=== PATIENT | female | born 1970 | race Caucasian/White ===

== ENCOUNTER 2018-05-26 18:03 | Emergency (ER) | payer OTHER ==
[2018-05-26 18:12] VITALS: BMI 30.3
--- NOTE | 2018-05-26 18:38 | PDOC ---
History of Present Illness - General Chief Complaint: Respiratory Stated Complaint: SICK - History of Present Illness Initial Comments: 05/26/18 18:37 47 yo female with PMH NIDDM (not on meds at this time) presents to the ED with 3 days of myalgias (worst in the right neck and shoulder) nausea and vomiting which began today. She states that she was cleaning out a house last weekend which was sonam, she had a few "sneezing attacks" and felt that she might be getting a cold. She states she has had muscle soreness in the past in a similar area as she works as a field merchandiser on the weekends, however this pain is different and is very sensitive to touch. She states she has been feeling feverish with some chills, though she has not checked her temperature. She states she had an episode of vomiting today which was followed by weakness and a period of 3 hours where she sat in her car and felt unable to get out or drive home. She was then able drive herself back where she then called her who told her to come to the ER for further evaluation. Past History - Past Medical History Allergies/Adverse Reactions: Allergies Allergy/AdvReac Type Severity Reaction Status Date / Time peanut Allergy Verified 05/26/18 18:08 Home Medications: Ambulatory Orders Paroxetine HCl [Paxil -] mg PO DAILY 05/26/18 COPD: No Psychiatric Problems: Yes - Surgical History Appendectomy: Yes - Suicide/Smoking/Psychosocial Hx Smoking History: Current every day smoker Information on smoking cessation initiated: No *Physical Exam - Vital Signs Last Vital Signs Temp Pulse Resp BP Pulse Ox 99.4 F 99 H 18 113/63 99 05/26/18 18:09 05/26/18 18:09 05/26/18 18:09 05/26/18 18:09 05/26/18 18:09 - Physical Exam Comments: 05/26/18 18:37 GEN: A&O, pt appears uncomfortable HEENT: dry mucus membranes NECK: supple, significantly tender to palpation in the right neck and scapular/ shoulder region HEART: Tachycardic, no murmurs noted LUNGS: CTA b/l ABDOMEN: Soft, nontender EXTREMITIES: no peripheral edema or calf tenderness Moderate Sedation - Procedure Monitoring Vital Signs: Procedure Monitoring Vital Signs Temperature 99.4 F 05/26/18 18:09 Pulse Rate 99 H 05/26/18 18:09 Respiratory Rate 18 05/26/18 18:09 Blood Pressure 113/63 05/26/18 18:09 O2 Sat by Pulse Oximetry (%) 99 05/26/18 18:09 ED Treatment Course - LABORATORY CBC & Chemistry Diagram: 05/26/18 19:10 05/26/18 20:15 Medical Decision Making - Medical Decision Making 05/26/18 18:40 47 yo female presents with flu like symptoms vs atypical chest and neck pain. Warm but not technically febrile, tachycardic CBC, CMP, Cardiac Profile, EKG, CXR 1L LR fluid bolus, 1000 mg IV Tylenol and reassess 05/26/18 20:37 CBC wnl, CMP/Cardiac profile hemolyzed, repeat pending EKG without any concerning symptoms CXR without any acute pathology 05/26/18 21:05 CMP/Cardiac profile wnl. Pt can likely be d/c with instructions to drink plenty of fluids and return if symptoms worsen or any new concerning symptoms. *DC/Admit/Observation/Transfer Diagnosis at time of Disposition: Viral respiratory illness - Discharge Dispostion Disposition: HOME Condition at time of disposition: Stable Decision to Admit order: No - Referrals - Patient Instructions Additional Instructions: You were seen in the emergency room with flu like symptoms. You were given fluids and tylenol which improved your symptoms. You should make sure to drink plenty of fluids until you are feeling completely better. You can take tylenol for your aches and pains as directed on the packaging. If you have any worsening or concerning symptoms, you should be evaluated by your doctor or return to the emergency department. - Post Discharge Activity
--- NOTE | 2018-05-26 18:50 | PDOC ---
Attending Attestation - HPI HPI: 05/26/18 21:14 The patient is a 47 year old female, with a significant PMH of NIDDM, who presents to the emergency department complaining of generalized weakness, neck and shoulder pain today. She states constant pain is located to the right side of the neck radiating to the right shoulder accompanied with numbness to the radial aspect of the right hand. The patient states she has been endorsing associated symptoms of nausea, dizziness, diarrhea, non bilious and non bloody vomiting, fatigue for the past week that has progressively worsened today. She also mentions she was not able to get out of her car for 3 hours secondary to generalized weakness. The patient denies chest pain and headache. Denies fever , chills, and constipation. Denies dysuria, frequency, urgency and hematuria. Allergies: peanut Past surgical history: Appendectomy Social history: Current everyday smoker. PCP: None reported Documentation prepared by Steven Salomon, acting as medical education specialist for Elizabeth Tesfaye MD. - Physicial Exam PE: 05/26/18 21:15 GENERAL: Awake, alert, and fully oriented, in no acute distress HEAD: No signs of trauma LUNGS: Breath sounds equal, clear to auscultation bilaterally. No wheezes, and no crackles HEART: Regular rate and rhythm, normal S1 and S2, no murmurs, rubs or gallops ABDOMEN: Soft, nontender, normoactive bowel sounds. No guarding, no rebound. No masses EXTREMITIES: Normal range of motion, no edema. No clubbing or cyanosis. No cords, erythema, or tenderness NEUROLOGICAL: Cranial nerves II through XII grossly intact. Normal speech. SKIN: Warm, Dry, normal turgor, no rashes or lesions noted. Documentation prepared by Steven Salomon, acting as medical education specialist for Elizabeth Tesfaye MD. <Steven Salomon - Last Filed: 05/26/18 21:14> - Resident Resident Name: Luisito Dominguez - Medical Decision Making 05/26/18 23:24 Pt presents to the ED complaining of generalized malaise, R sided chest pain. No risk factors for cardiac disease. Initial differential included flu, other viral syndrome, less likely ACS. Labs are within normal limits. EKG is normal. Pt feels improved after IVF and tylenol/ Will discharge home. <Elizabeth Tesfaye - Last Filed: 05/26/18 23:29>
[2018-05-26] MEDS ORDERED: LACTATED RINGERS SOLUTION 1000 ML INFUS.BAG IV ONE ×2 (18:56→20:43)
[2018-05-26] MEDS ORDERED: ACETAMINOPHEN 1000 MG/100 ML VIAL (NON FORMULARY) IVPB ONE (19:07)
[2018-05-26] MEDS ORDERED: ACETAMINOPHEN INJECTION 100 ML IVPB ONE (19:26)
[2018-05-26 19:36] LABS: BASO % 0.7 % (0-2.0); EOS % 0.7 % (0-4.5); HEMATOCRIT 40.3 % (32.4-45.2); HEMOGLOBIN 14.4 GM/dL (10.7-15.3); LYMPH % 21.9 % (8-40); MCH 30.2 pg (25.7-33.7); MCHC 35.7 g/dl (32.0-36.0); MEAN CELL VOLUME 84.5 fl (80-96); MONO % 9.7 % (3.8-10.2); PLATELET COUNT 295 K/MM3 (134-434); RBC 4.77 M/mm3 (3.60-5.2); RDW 13.9 % (11.6-15.6); WHITE BLOOD COUNT 10.3 K/mm3 (4.0-10.0)
[2018-05-26 21:04] LABS: ALBUMIN 3.4 g/dl (3.4-5.0); ALK PHOS 54 U/L (45-117); ANION GAP 4 MMOL/L (8-16); BLOOD UREA NITROGEN 9 mg/dL (7-18); CALCIUM 8.2 mg/dL (8.5-10.1); CHLORIDE 107 mmol/L (98-107); CO2 28 mmol/L (21-32); CREATININE 0.7 mg/dL (0.55-1.3); GLUCOSE,RANDOM 96 mg/dL (74-106); SGOT/AST 11 U/L (15-37); SGPT/ALT 19 U/L (13-61); SODIUM 139 mmol/L (136-145); TOT PROT 6.3 g/dl (6.4-8.2)
[2018-05-26 21:22] VITALS: BP 112/60; PULSE 88; TEMP 99
--- NOTE | 2018-05-27 11:50 | EKG ---
Test Reason : Blood Pressure : / mmHG Vent. Rate : 067 BPM Atrial Rate : 067 BPM P-R Int : 144 ms QRS Dur : 090 ms QT Int : 416 ms P-R-T Axes : -18 038 058 degrees QTc Int : 439 ms NORMAL SINUS RHYTHM NORMAL ECG NO PREVIOUS ECGS AVAILABLE Confirmed by JUSTINA MADERA MD ([id number]) on 05/27/2018 11:50:12 AM Referred By: Confirmed By:JUSTINA MADERA MD
== END 2018-05-26 21:21 | disposition home or self-care (01) ==
LOC: JER 18:03
PROC: 3E033NZ Introduction of Analgesics, Hypnotics, Sedatives into Peripheral Vein, Percutaneous Approach (ICD-10-PCS; principal; 2018-05-26)
DX: J06.9 Acute upper respiratory infection, unspecified (principal)
CPT/HCPCS: 36415; 71045-TC-FY; 80053; 82550; 84484; 85025; 87804; 93005; 93010; 96374; 99285-25; J0131